=== PATIENT | female | born 2000 ===

== ENCOUNTER → 2023-11-19 | Outpatient (CLI) | payer OTHER | END | disposition home or self-care (01) | LOC: LAB SHORT 10:59 → LAB 10:59 | DX: Z34.01 Encounter for supervision of normal first pregnancy, first trimester (principal) ==

== ENCOUNTER → 2024-10-24 | Outpatient (CLI) | payer OTHER | LOC: LAB 16:47 → LAB SHORT 16:47 | DX: Z34.83 Encounter for supervision of other normal pregnancy, third trimester (principal) | CPT/HCPCS: 87081; 87150 ==

== ENCOUNTER 2024-11-03 12:55 | Inpatient (IN) | payer OTHER ==
[2024-11-03] VITALS (11 sets, daily range): BP systolic 113–142; BP diastolic 60–95
[~2024-11-03] VITALS: Ht 160 cm; Wt 77.2 kg
[2024-11-03] MEDS ORDERED: Lactated Ringer's 1,000 ML IV SCH ×4 (13:30→14:55)
[2024-11-03] MEDS ORDERED: FentaNYL Citrate 50 MCG/ML 2 ML Injection IV PRN (13:35)
[2024-11-03] MEDS ORDERED: FentaNYL 2mcg/ml-Bup 0.1% Epd 250 ML EPI PRN (13:35)
[2024-11-03] MEDS ORDERED: ePHEDrine Sulfate 50 MG/ML 1ML Injection XX PRN (13:35)
[2024-11-03] MEDS ORDERED: OXYTOCIN/RINGER'S LACTATE 500 ML IV ONE (14:37)
[2024-11-03 14:48] LABS: Albumin, Blood 3.1 g/dL (3.4-5.0); Albumin/Globulin Ratio 0.7 (0.8-1.8); Bilirubin, Total 0.4 mg/dL (0.1-1.0); Bun/Creatinine Ratio 22.3 (12.0-20.0); Calcium, Blood 9.9 mg/dL (8.5-10.1); Creatinine, Blood 0.63 mg/dL (0.40-1.00); Globulin, Blood 4.3 g/dL (2.2-4.0); Potassium, Blood 4.3 mmol/L (3.5-5.5); Total Protein, Blood 7.4 g/dL (6.4-8.2)
[2024-11-03] MEDS ORDERED: OXYTOCIN/RINGER'S LACTATE 500 ML IV SCH (14:55)
[2024-11-03 15:35] LABS: BASOPHILS ABSOLUTE AUTO 0.04 K/mm3 (0.00-0.23); BASOPHILS PERCENT AUTO 0 % (0-2); EOSINOPHILS ABSOLUTE AUTO 0.25 K/mm3 (0.00-0.68); EOSINOPHILS PERCENT AUTO 2 % (0-6); Hematocrit 37.1 % (33.0-51.0); Hemoglobin 11.7 g/dL (11.5-16.0); IMMATURE GRAN ABSOLUTE AUTO 0.13 K/mm3 (0.00-0.10); IMMATURE GRAN PERCENT AUTO 1 % (0-1); LYMPHOCYTES ABSOLUTE AUTO 1.86 K/mm3 (0.84-5.20); LYMPHOCYTES PERCENT AUTO 15 % (21-46); MONOCYTES ABSOLUTE AUTO 0.92 K/mm3 (0.16-1.47); MONOCYTES PERCENT AUTO 8 % (4-13); Mean Corpuscular HGB 24.2 pg (26.0-34.0); Mean Corpuscular HGB Conc 31.5 g/dL (31.5-36.5); Mean Corpuscular Volume 77 fL (80-100); Mean Platelet Volume 12.7 fL (9.1-12.4); NEUTROPHILS ABSOLUTE AUTO 8.91 K/mm3 (1.96-9.15); NEUTROPHILS PERCENT AUTO 74 % (41-73); Platelet Count 396 K/mm3 (150-400); RDW Coefficient Variation 13.7 % (11.7-14.2); RDW Standard Deviation 37.1 fL (35.1-46.3); Red Blood Cell Count 4.84 M/mm3 (3.80-5.20); White Blood Cell Count 12.11 K/mm3 (4.00-11.30)
[2024-11-03] MEDS ORDERED: Misoprostol 200 MCG Tab PR PRN (15:35)
[2024-11-03] MEDS ORDERED: Lactated Ringer's 1,000 ML IV PRN ×2 (15:35→23:15)
[2024-11-03] MEDS ORDERED: Methylergonovine Maleate 0.2MG / ML 1ML Amp IM PRN (15:35)
[2024-11-03] MEDS ORDERED: Oxytocin 10 Unit / ML Vial IM PRN (15:35)
[2024-11-03] MEDS ORDERED: Carboprost Tromethamine 250 MCG/ML 1ML Amp IM PRN (15:35)
[2024-11-03] MEDS ORDERED: Misoprostol 200 MCG Tab BC PRN (15:35)
[2024-11-03] MEDS ORDERED: Ondansetron HCl 2 MG / ML 2ML Vial IV PRN (15:35)
[2024-11-03] MEDS ORDERED: Tranexamic Acid 100 ML IV SCH (15:35)
[2024-11-03] MEDS ORDERED: Acetaminophen 500 MG Tab PO PRN (15:35)
[2024-11-03] MEDS ORDERED: Calcium Carbonate 500 MG Tab Chew PO SCH (15:40)
[2024-11-03] MEDS ORDERED: Ondansetron HCl 2 MG / ML 2ML Vial ONE (15:52)
[2024-11-03 16:04] LABS: Creatinine, Urine Random 90.5 mg/dL (27.00-270.00); Protein, Urine Random 16.9 mg/dL (0.0-11.9); Protein/Creat Ratio, Ur Random 0.2
[2024-11-03] MEDS ORDERED: PRENATAL TABLE1 EAC2 PO (22:15)
[2024-11-03] MEDS ORDERED: Ventolin5 MG/1 ML INH (23:04)
[2024-11-03] MEDS ORDERED: ALBU90OI INH (23:09)
[2024-11-03] MEDS ORDERED: OXYTOCIN/RINGER'S LACTATE 500 ML IV PRN ×2 (23:20→23:30)
[2024-11-04] VITALS (49 sets, daily range): BP systolic 117–174; BP diastolic 58–106
[2024-11-04] MEDS ORDERED: DiphenhydrAMINE HCL 25 MG Cap PO PRN (01:35)
[2024-11-04] MEDS ORDERED: Lactated Ringer's 1,000 ML IV SCH (16:40)
[2024-11-04] MEDS ORDERED: Docusate Sodium 100 MG Cap PO PRN (16:40)
[2024-11-04] MEDS ORDERED: Witch Hazel/Glycerin PADS TOP PRN (16:40)
[2024-11-04] MEDS ORDERED: Ibuprofen 400 MG Tab PO PRN (16:40)
[2024-11-04] MEDS ORDERED: Carboprost Tromethamine 250 MCG/ML 1ML Amp IM PRN (16:40)
[2024-11-04] MEDS ORDERED: Misoprostol 200 MCG Tab PR PRN (16:40)
[2024-11-04] MEDS ORDERED: Methylergonovine Maleate 0.2MG / ML 1ML Amp IM PRN (16:45)
[2024-11-04] MEDS ORDERED: OXYTOCIN/RINGER'S LACTATE 500 ML IV SCH (16:45)
[2024-11-04] MEDS ORDERED: Lanolin Cream TOP PRN (16:45)
[2024-11-04] MEDS ORDERED: Oxytocin 10 Unit / ML Vial IM ONE (16:45)
[2024-11-04] MEDS ORDERED: Ketorolac Tromethamine 30mg Vial IV PRN (16:45)
[2024-11-04] MEDS ORDERED: Benzocaine Topical Anesthetic Spray 60GM TOP PRN (16:45)
[2024-11-04] MEDS ORDERED: Acetaminophen 500 MG Tab PO PRN (16:50)
[2024-11-05 04:05] VITALS: BP 121/70
[2024-11-05 06:18] LABS: BASOPHILS ABSOLUTE AUTO 0.05 K/mm3 (0.00-0.23); BASOPHILS PERCENT AUTO 0 % (0-2); EOSINOPHILS ABSOLUTE AUTO 0.12 K/mm3 (0.00-0.68); EOSINOPHILS PERCENT AUTO 1 % (0-6); Hematocrit 27.2 % (33.0-51.0); Hemoglobin 8.6 g/dL (11.5-16.0); IMMATURE GRAN PERCENT AUTO 1 % (0-1); LYMPHOCYTES ABSOLUTE AUTO 2.52 K/mm3 (0.84-5.20); LYMPHOCYTES PERCENT AUTO 14 % (21-46); MONOCYTES ABSOLUTE AUTO 1.48 K/mm3 (0.16-1.47); MONOCYTES PERCENT AUTO 8 % (4-13); Mean Corpuscular HGB 24.4 pg (26.0-34.0); Mean Corpuscular HGB Conc 31.6 g/dL (31.5-36.5); Mean Corpuscular Volume 77 fL (80-100); Mean Platelet Volume 11.3 fL (9.1-12.4); NEUTROPHILS ABSOLUTE AUTO 13.53 K/mm3 (1.96-9.15); NEUTROPHILS PERCENT AUTO 76 % (41-73); Platelet Count 233 K/mm3 (150-400); RDW Standard Deviation 38.4 fL (35.1-46.3); Red Blood Cell Count 3.53 M/mm3 (3.80-5.20)
[2024-11-05 07:43] VITALS: BP 131/82
[2024-11-05] MEDS ORDERED: Prenatal Vit/FE Fumarate/FA 1 Tab PO SCH (09:00)
[2024-11-05 11:35] VITALS: BP 129/75
[2024-11-05] MEDS ORDERED: Sod Ferric Gluc Complx/Sucrose 125 MG in NS 100 ML IV SCH (12:00)
--- NOTE | 2024-11-05 13:25 | NUR ---
MOM RECEIVING IRON INFUSION WHILE IN SCN VISITING . RN ALSO DISCUSSED ELECTRIC PUMP EDUCATION AND MOM IS NOW PUMPING IN SCN.
[2024-11-05] MEDS ORDERED: Polyethylene Glycol 3350 17 gm PO ONE (14:05)
[2024-11-05 17:34] VITALS: BP 138/76
--- NOTE | 2024-11-05 18:20 | NUR ---
ilana dailey called in to [facility], telephone order given by rosenda raymond, message left at [facility]
[2024-11-05 19:55] VITALS: BP 125/75
--- NOTE | 2024-11-05 20:10 | NUR ---
WHEN ARRIVING ON SHIFT PT IN NURSERY FOR BABY FEEDING. PT PUMPED IN NURSERY AND THEN RETURN TO ROOM WITH . PT PLANS TO RETURN TO NURSERY FOR MOST NIGHT FEEDS WITH THE THOUGHT SHE MAY SKIP ONE NIGHT FEED TO SLEEP.
[2024-11-05] MEDS ORDERED: Polyethylene Glycol 3350 17 gm PO SCH (21:00)
[2024-11-05 22:57] VITALS: BP 123/66
[2024-11-06 03:44] VITALS: BP 129/81
--- NOTE | 2024-11-06 03:52 | NUR ---
PT REPORTS NAUSEA SHE BELIEVES IS FROM BEING HUNGRY. SNACK PROVIDED. PT REPORTS SHE FEELS MUCH BETTER AFTER SNACK. WOULD LIKE TO BE WOKEN UP AT 0600 FOR NEWBORNS NEXT FEED.
[2024-11-06 07:10] VITALS: BP 123/70
[2024-11-06 11:40] VITALS: BP 142/86
== END 2024-11-06 15:55 | disposition home or self-care (01) | DRG 806 ==
LOC: BC 12:55 → OBS 12:55 → BC 13:17
PROVIDERS: ADMIT Advanced Practice Midwife
PROC: 10D07Z6 Extraction of Products of Conception, Vacuum, Via Natural or Artificial Opening (ICD-10-PCS; principal; 2024-11-04)
PROC: 0U7C7DJ Dilation of Cervix with Intraluminal Device, Temporary, Via Natural or Artificial Opening (ICD-10-PCS; 2024-11-04)
PROC: 3E033VJ Introduction of Other Hormone into Peripheral Vein, Percutaneous Approach (ICD-10-PCS; 2024-11-04)
PROC: 0UQGXZZ Repair Vagina, External Approach (ICD-10-PCS; 2024-11-04)
DX: O13.4 Gestational [pregnancy-induced] hypertension without significant proteinuria, complicating childbirth (principal); D62 Acute posthemorrhagic anemia; Z37.0 Single live birth; Z3A.37 37 weeks gestation of pregnancy; O76 Abnormality in fetal heart rate and rhythm complicating labor and delivery; O69.81X0 Labor and delivery complicated by cord around neck, without compression, not applicable or unspecified; J45.909 Unspecified asthma, uncomplicated; O99.52 Diseases of the respiratory system complicating childbirth; O90.81 Anemia of the puerperium; O71.4 Obstetric high vaginal laceration alone; Z91.018 Allergy to other foods; Z91.048 Other nonmedicinal substance allergy status; Z87.81 Personal history of (healed) traumatic fracture
CPT/HCPCS: 36415; 51702; 59200; 80053; 82570; 84156; 85025; 86850; 86900; 86901; A9270; J1885; J2405; J2590; J2916; J3010; J7120

== ENCOUNTER 2024-11-08 22:56 | Emergency (ER) | payer OTHER ==
[~2024-11-08] VITALS: Ht 160 cm; Wt 74.4 kg
[~2024-11-08 22:56] MED LIST: ALBU90OI INH; PRENATAL TABLE1 EAC2 PO; Ventolin5 MG/1 ML INH
[2024-11-08 23:44] LABS: BASOPHILS ABSOLUTE AUTO 0.05 K/mm3 (0.00-0.23); BASOPHILS PERCENT AUTO 0 % (0-2); EOSINOPHILS ABSOLUTE AUTO 0.49 K/mm3 (0.00-0.68); EOSINOPHILS PERCENT AUTO 4 % (0-6); Hematocrit 32.4 % (33.0-51.0); Hemoglobin 10.2 g/dL (11.5-16.0); IMMATURE GRAN ABSOLUTE AUTO 0.16 K/mm3 (0.00-0.10); IMMATURE GRAN PERCENT AUTO 1 % (0-1); LYMPHOCYTES ABSOLUTE AUTO 2.98 K/mm3 (0.84-5.20); LYMPHOCYTES PERCENT AUTO 27 % (21-46); MONOCYTES ABSOLUTE AUTO 0.72 K/mm3 (0.16-1.47); MONOCYTES PERCENT AUTO 7 % (4-13); Mean Corpuscular HGB 24.1 pg (26.0-34.0); Mean Corpuscular HGB Conc 31.5 g/dL (31.5-36.5); Mean Corpuscular Volume 77 fL (80-100); Mean Platelet Volume 10.7 fL (9.1-12.4); NEUTROPHILS ABSOLUTE AUTO 6.74 K/mm3 (1.96-9.15); NEUTROPHILS PERCENT AUTO 61 % (41-73); Platelet Count 362 K/mm3 (150-400); RDW Coefficient Variation 14.1 % (11.7-14.2); RDW Standard Deviation 37.1 fL (35.1-46.3); Red Blood Cell Count 4.23 M/mm3 (3.80-5.20); White Blood Cell Count 11.14 K/mm3 (4.00-11.30)
[2024-11-09 00:07] LABS: Albumin, Blood 3.1 g/dL (3.4-5.0); Albumin/Globulin Ratio 0.7 (0.8-1.8); Bilirubin, Total 0.3 mg/dL (0.1-1.0); Bun/Creatinine Ratio 21.3 (12.0-20.0); Calcium, Blood 9.4 mg/dL (8.5-10.1); Creatinine, Blood 0.75 mg/dL (0.40-1.00); Globulin, Blood 4.5 g/dL (2.2-4.0); Potassium, Blood 3.8 mmol/L (3.5-5.5); Total Protein, Blood 7.6 g/dL (6.4-8.2)
== END 2024-11-09 00:35 | disposition home or self-care (01) ==
LOC: ER 22:56
PROVIDERS: Student in an Organized Health Care Education/Training Program
DX: O99.53 Diseases of the respiratory system complicating the puerperium (principal); J45.901 Unspecified asthma with (acute) exacerbation; Z79.51 Long term (current) use of inhaled steroids
CPT/HCPCS: 71046; 80053; 84484; 85025; 93005; 93010; 99285-25